=== PATIENT | female | born 1955 | race Caucasian/White ===

== ENCOUNTER → 2016-05-13 07:47 | Outpatient (CLI) | payer BC ==
[2009-06-16 09:20] VITALS: BMI 37.1
[2016-05-25 03:09] LABS: OVA + PARASITE EXAM Final report (())
== END | disposition home or self-care (01) ==
LOC: D.LAB 07:47
PROVIDERS: Internal Medicine Gastroenterology
DX: R19.7 Diarrhea, unspecified (principal); R10.9 Unspecified abdominal pain

== ENCOUNTER → 2016-06-02 07:38 | Outpatient (CLI) | payer BC ==
[2009-06-16 09:20] VITALS: BMI 37.1
== END | disposition home or self-care (01) ==
LOC: D.RAD 07:38
DX: R13.12 Dysphagia, oropharyngeal phase (principal)

== ENCOUNTER 2016-07-07 18:55 | Emergency (ER) | payer BC ==
[2009-06-16 09:20] VITALS: BMI 37.1
[2016-07-07 20:37] LABS: BASOPHILS 0.1 % (0.0-2.0); EOSINOPHILS 7.9 % (0-7); HEMATOCRIT 42.9 % (36.0-48.0); HEMOGLOBIN 14.4 g/dL (12-16); IMMATURE GRANULOCYTES 1.3 % (0-5); LYMPHOCYTES 23.7 % (15-50); MCH 29.4 pg (26.0-34.0); MCHC 33.6 g/dL (31.0-37.0); MCV 87.7 fL (80.0-100.0); MEAN PLATELET VOLUME 9.1 fL (7.4-10.4); MONOCYTES 5.3 % (2-11); NEUTROPHILS 61.7 % (40-80); PLATELET COUNT 239 10x3/uL (130-400); RBC 4.89 10x6/uL (4.00-5.40); RDW 13.2 % (11.5-14.5); WBC 8.6 10x3/uL (4.8-10.8)
[2016-07-07 21:16] LABS: ALBUMIN 2.9 g/dL (3.4-5.0); ALKALINE PHOSPHATASE 132 U/L (46-116); ALT (SGPT) 22 U/L (10-68); CALC OSMOLALITY 276 mosm/kg (275-300); CALCIUM 8.9 mg/dL (8.5-10.1); CARBON DIOXIDE 25.6 mmol/L (21.0-32.0); CHLORIDE - SERUM 103 mmol/L (98-107); CREATININE - SERUM 0.6 mg/dL (0.6-1.3); GLUCOSE 85 mg/dL (74-106); POTASSIUM - SERUM 3.5 mmol/L (3.5-5.1); PROTEIN - SERUM 5.7 g/dL (6.4-8.2); SODIUM 139 mmol/L (136-145); UREA NITROGEN 13 mg/dL (7-18); eGFR NON AFRICAN AMERICAN > 90 mL/min (90-120)
[2016-07-07 23:19] LABS: AMYLASE - SERUM 18 U/L (25-115); TROPONIN-I < 0.017 ng/mL (0.000-0.060)
[2016-07-07 23:30] LABS: LIPASE 48 U/L (73-393)
[2016-07-08 00:57] LABS: APPEARANCE CLOUDY (CLEAR); BILIRUBIN NEGATIVE (NEGATIVE); COLOR YELLOW (YELLOW); GLUCOSE NEGATIVE (NEGATIVE); KETONE MODERATE mg/dL (NEGATIVE); LEUKOCYTE ESTERASE 2+ (NEGATIVE); NITRITE POSITIVE (NEGATIVE); PH 5.5 (5.0-6.0); PROTEIN TRACE mg/dL (NEGATIVE); SPECIFIC GRAVITY 1.015 (1.005-1.020); UROBILINOGEN NORMAL (NORMAL)
[2016-07-08 01:03] LABS: BACTERIA MANY /hpf (NONE SEEN); MUCUS <1+ /lpf (NONE SEEN); RED CELLS - URINE 0-5 /hpf (0-5); WHITE CELLS - URINE >50 /hpf (0-5)
== END 2016-07-08 02:07 | disposition home or self-care (01) ==
LOC: D.ER 18:55
PROVIDERS: Family Medicine
DX: N39.0 Urinary tract infection, site not specified (principal)

== ENCOUNTER → 2016-07-20 09:07 | Outpatient (CLI) | payer BC ==
[2009-06-16 09:20] VITALS: BMI 37.1
== END | disposition home or self-care (01) ==
LOC: D.RAD 09:07
DX: R19.7 Diarrhea, unspecified (principal); R63.4 Abnormal weight loss

== ENCOUNTER → 2017-05-20 07:33 | Outpatient (CLI) | payer BC ==
[2009-06-16 09:20] VITALS: BMI 37.1
[2017-05-20 08:11] LABS: APPEARANCE CLEAR (CLEAR); BILIRUBIN NEGATIVE (NEGATIVE); COLOR YELLOW (YELLOW); GLUCOSE NEGATIVE (NEGATIVE); KETONE NEGATIVE (NEGATIVE); NITRITE POSITIVE (NEGATIVE); PROTEIN NEGATIVE (NEGATIVE); SPECIFIC GRAVITY 1.015 (1.005-1.020); UROBILINOGEN NORMAL (NORMAL)
[2017-05-20 08:15] LABS: BACTERIA MANY /hpf (NONE SEEN); EPITHELIAL CELLS 0-5 /hpf (0-5); MUCUS <1+ /lpf (NONE SEEN); RED CELLS - URINE RARE /hpf (0-5)
[2017-05-21 08:16] LABS: FOLATE (FOLIC ACID) - SERUM 9.5 ng/mL (>3.0)
[2017-05-22 11:08] LABS: VITAMIN D 25 HYDROXY 7.4 ng/mL (30.0-100.0)
== END | disposition home or self-care (01) ==
LOC: D.LAB 07:33
PROVIDERS: Family Medicine
DX: G58.9 Mononeuropathy, unspecified (principal); K58.9 Irritable bowel syndrome, unspecified; E03.9 Hypothyroidism, unspecified; N39.0 Urinary tract infection, site not specified

== ENCOUNTER → 2017-10-07 07:44 | Outpatient (CLI) | payer BC ==
[2009-06-16 09:20] VITALS: BMI 37.1
== END | disposition home or self-care (01) ==
LOC: D.LAB 10-05 08:00
DX: K58.0 Irritable bowel syndrome with diarrhea (principal)

== ENCOUNTER 2018-01-03 01:07 | Emergency (ER) | payer BC ==
[~2018-01-03] VITALS: Ht 167.6 cm; Wt 70.0 kg
[2018-01-03] MEDS ORDERED: NEURONTIN800 MG PO (01:18)
[2018-01-03] MEDS ORDERED: CYMBALTA30 MG PO (01:18)
[2018-01-03] MEDS ORDERED: SYNTHROID25 MCG (01:18)
[2018-01-03 01:20] VITALS: Ht 167.6 cm; Wt 70.0 kg
[2018-01-03] MEDS ORDERED: ACETAMINOPHEN325 MG PO (01:20)
[2018-01-03] MEDS ORDERED: IMMODIUM (01:20)
[2018-01-03 02:07] LABS: BASOPHILS 0.3 % (0-2); EOSINOPHILS 3.1 % (0-7); HEMATOCRIT 39.5 % (36.0-48.0); HEMOGLOBIN 13.4 g/dL (12-16); IMMATURE GRANULOCYTES 0.3 % (0-5); LYMPHOCYTES 18.8 % (15-50); MCH 29.5 pg (26.0-34.0); MCHC 33.9 g/dL (31.0-37.0); MEAN PLATELET VOLUME 8.9 fL (7.4-10.4); NEUTROPHILS 71.5 % (40-80); PLATELET COUNT 233 10x3/uL (130-400); RBC 4.54 10x6/uL (4.00-5.40); RDW 13.2 % (11.5-14.5); WBC 5.8 10x3/uL (4.8-10.8)
[2018-01-03 02:13] LABS: APPEARANCE CLOUDY (CLEAR); COLOR YELLOW (YELLOW); SPECIFIC GRAVITY 1.015 (1.005-1.020)
[2018-01-03 02:14] LABS: BILIRUBIN NEGATIVE (NEGATIVE); GLUCOSE NEGATIVE (NEGATIVE); KETONE NEGATIVE (NEGATIVE); NITRITE POSITIVE (NEGATIVE); PROTEIN TRACE mg/dL (NEGATIVE); UROBILINOGEN NORMAL (NORMAL)
[2018-01-03 02:14] LABS: ALBUMIN 3.6 g/dL (3.4-5.0); ALKALINE PHOSPHATASE 94 U/L (46-116); ALT (SGPT) 122 U/L (10-68); BILIRUBIN - TOTAL 0.98 mg/dL (0.2-1.3); CALC OSMOLALITY 266 mosm/kg (275-300); CALCIUM 8.7 mg/dL (8.5-10.1); CARBON DIOXIDE 28.3 mmol/L (21.0-32.0); CHLORIDE - SERUM 98 mmol/L (98-107); GLUCOSE 100 mg/dL (74-106); POTASSIUM - SERUM 3.5 mmol/L (3.5-5.1); PROTEIN - SERUM 6.9 g/dL (6.4-8.2); SODIUM 133 mmol/L (136-145); UREA NITROGEN 14 mg/dL (7-18); eGFR NON AFRICAN AMERICAN 60 mL/min (90-120)
[2018-01-03 02:15] LABS: BACTERIA MANY /hpf (NONE SEEN); EPITHELIAL CELLS 0-5 /hpf (0-5); HYALINE CAST 0-5 /lpf (NONE SEEN); RED CELLS - URINE 0-5 /hpf (0-5)
[2018-01-03 02:23] LABS: CKMB 15.1 U/L (0.0-3.6); CREATINE KINASE 177 UL (21-215); LIPASE 94 U/L (73-393); TROPONIN-I < 0.017 ng/mL (0.000-0.060)
[2018-01-03] MEDS ORDERED: MACROBID100 MG PO (04:12)
[2018-01-03 04:39] VITALS: BP 134/87
== END 2018-01-03 04:40 | disposition home or self-care (01) ==
LOC: D.ER 01:07
PROVIDERS: Family Medicine
DX: N39.0 Urinary tract infection, site not specified (principal); E86.9 Volume depletion, unspecified